=== PATIENT | female | born 1970 | race Hispanic/Latino ===

== ENCOUNTER → 2018-07-21 | Outpatient (CLI) | payer OTHER ==
[2018-07-21 17:50] LABS: BLOOD UREA NITROGEN 24 mg/dL (7-26); BUN/CREATININE RATIO 27 (6-25); CREATININE, SERUM 0.89 mg/dL (0.57-1.11); EST GLOMERULAR FILTRATION RATE > 60 ML/MIN (60-)
--- NOTE | 2018-07-21 19:18 | Diagnostic Imaging Report ---
ADDENDUM #1 48 year old female with headache, neck pain, nausea and vomiting. The images and neuroradiology fellow, Dr Tk Boone's report were reviewed and signed by Dr. Preeti Urbano, neuroradiology faculty, on 07/21/2018 at 1954 hours. Signed by: Dr. Preeti Urbano M.D. on 07/21/2018 7:54 PM ORIGINAL REPORT History:<>, Comparison studies: None Technique: Axial images were obtained from the thoracic inlet. Coronal and sagittal images reconstructed from the axial data. Dose modulation, iterative reconstruction, and/or weight based adjustment of the mA/kV was utilized to reduce the radiation dose to as low as reasonably achievable. Intravenous contrast: 100 cc of Omnipaque 300. Findings: Noncontrast head CT: Scalp/skull: No abnormalities. No fractures, blastic or lytic lesions. Extra-axial spaces: No masses. No fluid collections. Brain sulci: Appropriate for age. Ventricles: Normal in size and configuration. No hydrocephalus. Parenchyma: No abnormal densities. No masses, hemorrhage, acute or chronic cortical vascular insults. Sellar/suprasellar region: No abnormalities Craniocervical junction: Patent foramen magnum. No Chiari one malformation. CTA neck: Aortic arch and major vessels: Patent. No abnormalities. Partially visualized median sternotomy Common carotid arteries: Patent. No abnormalities. Right internal carotid artery: Mild eccentric, partially calcified atheromatous plaques in the proximal right ICA without significant stenosis.. Left internal carotid artery: There is focal, short segment partially calcified eccentric plaque in the proximal left ICA which results in approximately 50-60% stenosis. The remainder of the vessel is normal. Vertebral arteries: Patent, no abnormalities. CTA intracranial: Internal carotid arteries: There is mild narrowing of the bilateral carotid arteries beginning in the cavernous segment through the terminal ICA, right slightly greater than left. There are a few calcified atheromatous plaques in the ICAs. Otherwise the vessels are patent without aneurysm. Basilar artery: Patent. No abnormalities. Posterior cerebral arteries: Patent. No abnormalities. Anatomical variants: Acom: Patent . Pcoms: Diminutive. Vertebral arteries: Codominant. Other findings: Degenerative changes of the cervical spine including a prominent partially calcified posterior disc bulge slightly results in mild central canal stenosis. Heterogeneous, centimeter size left thyroid nodule IMPRESSION: Head CT: No acute process. Cervical CTA: 1. Moderate (50-60%) proximal left ICA stenosis due to eccentric partially calcified atheromatous plaques. 2. Mild partially calcified atheromatous plaques in the proximal right ICA without significant stenosis. 3. Heterogeneous left thyroid nodule. Consider dedicated ultrasound evaluation if this has not been evaluated previously. Intracranial CTA: 1. Mild narrowing of the bilateral internal carotid arteries, likely due to atherosclerosis, without significant stenosis. 2. No aneurysm identified. These findings were discussed with ESCOBAR Jay by Dr. Boone via telephone at 1900 hours on 07/21/2018 This is a preliminary report was provided by the neuroradiology fellow. Attending over read to follow. Signed by: Tk Boone MD on 07/21/2018 7:21 PM
== END ==
LOC: CT 17:02
PROVIDERS: ATTEND Family Medicine
DX: G44.52 New daily persistent headache (NDPH) (principal); R11.2 Nausea with vomiting, unspecified; Z82.49 Family history of ischemic heart disease and other diseases of the circulatory system
CPT/HCPCS: 36415; 70496; 70498; 82565; 84520

== ENCOUNTER → 2018-08-01 | Outpatient (CLI) | payer OTHER ==
--- NOTE | 2018-08-01 13:53 | Diagnostic Imaging Report ---
EXAM: US THYROID DATE: 08/01/2018 8:32 AM INDICATION: Left thyroid nodule COMPARISON: Cervical CT, 07/21/2018 FINDINGS: Grayscale and color flow Doppler ultrasound of the thyroid was performed. Right lobe: 2.1 x 5.2 x 1.7 cm. Mildly heterogeneous parenchyma. Normal color flow vascularity. Nodules: Upper pole: 0.5 x 0.4 x 0.3 cm, cystic, no further evaluation needed. Lower pole: 0.7 x 0.4 x 0.6 cm, cystic, no further evaluation needed. Lower pole: 0.8 x 0.4 x 0.6 cm, solid, hypoechoic, wide, smooth margins, no calcifications. TR4a. Left lobe: 2.0 x 5.1 x 1.7 cm. Mildly heterogeneous parenchyma. Normal color flow vascularity. Nodules: Mid thyroid: 1.3 x 1.0 x 1.4 cm, solid, isoechoic, wide, ill-defined margins, no calcifications. TR3a. Mid thyroid: 0.5 x 0.6 x 0.5 cm, solid, isoechoic, wide, well-defined margins, no calcifications. TR3a. Lower pole: 0.6 x 0.5 x 0.7 cm, solid, hypoechoic, wide, well-defined margins, no calcifications. TR4a. Isthmus: 0.6 cm thickness. Nodules: 1.0 x 0.5 x 0.9 cm, solid, hypoechoic, wide, smooth margins, no calcifications. TR4b. IMPRESSION: 1. Multiple thyroid nodules compatible with multinodular goiter. 2. None of the thyroid nodules meet criteria for biopsy. Specifically, the left thyroid nodule noted on previous CT does not meet criteria for further evaluation. 3. Nodule in the isthmus meets ACR criteria for follow-up. Recommend follow-up thyroid ultrasound in one year. ACR TI-RADS Lexicon: TR1, Benign: No FNA TR2, Not Suspicious: No FNA. TR3a (<1.5 cm): No follow-up. TR3b (1.5-2.5 cm), Mildly Suspicious: Follow at 1, 3, 5 years. TR3c (>2.5 cm), Mildly Suspicious: FNA. TR4a (<1.0 cm): No follow-up. TR4b (1.0-1.5 cm), Moderately Suspicious: Follow at 1, 2, 3, 5 years. TR4c (>1.5 cm), Moderately Suspicious: FNA. TR5a (<0.5 cm): No follow-up. TR5b (0.5-1.0 cm), Highly Suspicious: Follow at 1, 2, 3, 4, 5 years. TR5c (>1.0 cm), Highly Suspicious: FNA. Literature: ACR Thyroid Imaging, Reporting and Data System (TI-RADS): White Paper of the ACR TI-RADS Committee. J Am Eli Radiol 2017. Signed by: Dr. Selwyn Llanes M.D. on 08/01/2018 1:49 PM
== END ==
LOC: US 08:23
PROVIDERS: ATTEND Family Medicine
DX: E04.1 Nontoxic single thyroid nodule (principal)
CPT/HCPCS: 76536